=== PATIENT | female | born 1940 | race Caucasian/White ===

== ENCOUNTER 2017-01-30 09:00 | Inpatient (IN) | payer MEDICARE, MEDICAID ==
[~2017-01-30] VITALS: Ht 168.9 cm; Wt 61.5 kg
[~2017-01-30 09:00] MED LIST: AMLO5TAB2 PO; AMLO5TAB4; ASPI-515; ATOR40TA PO; ATOR40TA78 PO; CLOP75TA22; CLOP75TA22 PO; ENAL10TA PO; ENAL10TA46; MENTHOL; METO-40; METO25TA35 PO; OMEP40CA6 PO; TRAM50TA2 PO
[2017-01-30] MEDS ORDERED: PLEASE ENTER HEIGHT AND WEIGHT MC SCH (10:00)
[2017-01-30] MEDS ORDERED: ONDANSETRON 2MG/ML, 2ML IVPush PRN (10:00)
[2017-01-30] MEDS ORDERED: BISACODYL 10 MG SUPP PR PRN (10:00)
[2017-01-30] MEDS ORDERED: ACETAMINOPHEN 325 MG TABLET PO PRN (10:00)
[2017-01-30] MEDS ORDERED: ZOLPIDEM 5MG TABLET PO PRN (10:00)
[2017-01-30] MEDS ORDERED: BISACODYL 5 MG EC TABLET PO PRN (10:00)
[2017-01-30 11:36] LABS: HEMOGLOBIN 13.4 g/dL (11.7-16.4)
[2017-01-30 11:49] LABS: BLOOD UREA NITROGEN 13 mg/dL (7-18)
[2017-01-30 11:54] LABS: IS PT STATUS REG ER OR PRE ER? NO
[2017-01-30] MEDS: SOTALOL 80MG TABLET PO SCH ×2 (12:52→20:29)
[2017-01-30 13:41] VITALS: BP 155/75
[2017-01-30 15:59] LABS: IS PT STATUS REG ER OR PRE ER? NO
[2017-01-30 19:47] VITALS: BP 125/63
[2017-01-30] MEDS: DABIGATRAN 150 MG CAPSULE PO SCH (20:27)
[2017-01-30] MEDS: ATORVASTATIN 80 MG TABLET PO SCH (20:28)
[2017-01-30] MEDS ORDERED: SOTALOL 80MG TABLET PO SCH (21:00)
[2017-01-30 21:47] LABS: IS PT STATUS REG ER OR PRE ER? NO
[2017-01-31 01:52] VITALS: BP 113/47
[2017-01-31 07:32] VITALS: BP 127/61
[2017-01-31] MEDS: CLOPIDOGREL 75 MG TABLET PO SCH (08:25)
[2017-01-31] MEDS: AMLODIPINE 5 MG TABLET PO SCH (08:25)
[2017-01-31] MEDS: ENALAPRIL 20MG TABLET PO SCH (08:25)
[2017-01-31] MEDS: DABIGATRAN 150 MG CAPSULE PO SCH (08:25)
[2017-01-31] MEDS: SOTALOL 80MG TABLET PO SCH ×2 (10:31→20:26)
[2017-01-31 14:48] VITALS: BP 126/72
[2017-01-31] MEDS ORDERED: CEFAZOLIN PMX 1GM/50ML 50 ML IVPB ONE (16:00)
[2017-01-31 19:57] VITALS: BP 160/79
[2017-01-31] MEDS: ATORVASTATIN 80 MG TABLET PO SCH (20:25)
[2017-01-31] MEDS: SODIUM CHLORIDE 0.9% 1,000 ML IV SCH (23:58)
[2017-02-01] MEDS: SODIUM CHLORIDE 0.9% 1,000 ML IV SCH ×2 (00:40→10:16)
[2017-02-01 01:10] VITALS: BP 153/68
[2017-02-01] MEDS: SOTALOL 80MG TABLET PO SCH ×2 (06:35→17:39)
[2017-02-01 07:05] VITALS: BP 150/76
[2017-02-01] MEDS: AMLODIPINE 5 MG TABLET PO SCH (07:56)
[2017-02-01] MEDS: ENALAPRIL 20MG TABLET PO SCH (07:56)
[2017-02-01] MEDS: CLOPIDOGREL 75 MG TABLET PO SCH (07:56)
[2017-02-01] MEDS ORDERED: FENTANYL PF 100 MCG/2ML ONE (11:17)
[2017-02-01] MEDS ORDERED: CEFAZOLIN PMX 1GM/50ML 50 ML ONE (11:18)
[2017-02-01] MEDS ORDERED: MIDAZOLAM 1 MG/ML, 5ML ONE (11:18)
[2017-02-01] MEDS ORDERED: LIDOCAINE 2%, 20ML ONE (11:18)
[2017-02-01] MEDS ORDERED: CEFAZOLIN 1,000 MG ONE (11:18)
[2017-02-01] MEDS ORDERED: ACETAMINOPHEN 325 MG TABLET PO PRN (13:00)
[2017-02-01 14:00] VITALS: BP 137/93
[2017-02-01] MEDS ORDERED: METOPROLOL 1 MG/ML, 5ML IVPush ONE (14:00)
[2017-02-01] MEDS: CEFAZOLIN PMX 1GM/50ML 50 ML IVPB SCH ×2 (16:29→21:52)
[2017-02-01] MEDS: HYDROcodone/APAP 5/325 TABLET PO PRN ×2 (16:39→21:59)
[2017-02-01 18:56] VITALS: BP 103/63
[2017-02-01] MEDS: ATORVASTATIN 80 MG TABLET PO SCH (21:52)
[2017-02-01] MEDS: SODIUM CHLORIDE FLUSH 10ML SYR IVF SCH (21:53)
[2017-02-02 02:00] VITALS: BP 98/65
[2017-02-02 05:50] VITALS: BP 129/75
[2017-02-02] MEDS: SOTALOL 80MG TABLET PO SCH (05:51)
[2017-02-02] MEDS: CLOPIDOGREL 75 MG TABLET PO SCH (08:40)
[2017-02-02] MEDS: AMLODIPINE 5 MG TABLET PO SCH (08:40)
[2017-02-02] MEDS: ENALAPRIL 20MG TABLET PO SCH (08:40)
[2017-02-02] MEDS: SODIUM CHLORIDE FLUSH 10ML SYR IVF SCH (08:40)
[2017-02-02] MEDS ORDERED: HYDR-3240 PO (08:55)
[2017-02-02] MEDS ORDERED: SOTA80TA18 PO (08:55)
[2017-02-02 09:02] VITALS: BP 146/78
[2017-02-02] MEDS ORDERED: DABI150C PO (09:08)
== END 2017-02-02 14:30 | disposition home or self-care (01) | DRG 243 ==
LOC: 5SO 09:08
PROVIDERS: ADMIT Internal Medicine Cardiovascular Disease; ATTEND Internal Medicine Cardiovascular Disease
PROC: 0JH606Z Insertion of Pacemaker, Dual Chamber into Chest Subcutaneous Tissue and Fascia, Open Approach (ICD-10-PCS; principal; 2017-02-01)
PROC: 02HK3JZ Insertion of Pacemaker Lead into Right Ventricle, Percutaneous Approach (ICD-10-PCS; 2017-02-01)
PROC: 02H63JZ Insertion of Pacemaker Lead into Right Atrium, Percutaneous Approach (ICD-10-PCS; 2017-02-01)
DX: I49.5 Sick sinus syndrome (principal); D68.69 Other thrombophilia; I48.0 Paroxysmal atrial fibrillation; I25.10 Atherosclerotic heart disease of native coronary artery without angina pectoris; I10 Essential (primary) hypertension; R05 Cough; E78.5 Hyperlipidemia, unspecified; Z87.891 Personal history of nicotine dependence; Z95.5 Presence of coronary angioplasty implant and graft; M94.0 Chondrocostal junction syndrome [Tietze]
CPT/HCPCS: 33208; 36415; 71010; 71020; 80048; 80061; 84439; 84443; 84484; 85014; 85018; 93005; C1779; C1785; C1892; J0690; J2250; J3010; J3490; J7030

== ENCOUNTER 2017-03-27 23:15 | Inpatient (IN) | payer MEDICARE, MEDICAID ==
[~2017-03-27] VITALS: Ht 170.2 cm; Wt 59.6 kg
[~2017-03-27 23:15] MED LIST changes: +DABI150C PO; +HYDR-3240 PO; +SOTA80TA18 PO
[2017-03-27] MEDS ORDERED: METOPROLOL 1 MG/ML, 5ML ONE (23:49)
[2017-03-27] MEDS: METOPROLOL 1 MG/ML, 5ML IVPush PRN (23:52)
[2017-03-28] MEDS ORDERED: SODIUM CHLORIDE FLUSH 10ML SYR IVF ONE
[2017-03-28] MEDS ORDERED: METOPROLOL 1 MG/ML, 5ML ONE ×2 (00:09→00:33)
[2017-03-28] MEDS: METOPROLOL 1 MG/ML, 5ML IVPush PRN ×2 (00:13→00:39)
[2017-03-28 00:44] LABS: ASPARTATE AMINO TRANSFERASE 20 U/L (15-37); BLOOD UREA NITROGEN 13 mg/dL (7-18)
[2017-03-28 00:52] LABS: IS PT STATUS REG ER OR PRE ER? YES
[2017-03-28] MEDS ORDERED: DILTIAZEM 125 MG in DEXTROSE 5% 100 ML IV SCH (01:32)
[2017-03-28] MEDS ORDERED: DILTIAZEM 5 MG/ML, 5ML ONE (01:43)
[2017-03-28] MEDS ORDERED: DIGOXIN 0.25 MG/ML, 2ML ONE (01:45)
[2017-03-28] MEDS ORDERED: DILTIAZEM 5 MG/ML, 5ML IVPush ONE (02:00)
[2017-03-28] MEDS ORDERED: DIGOXIN 0.25 MG/ML, 2ML IVPush ONE (02:00)
[2017-03-28] MEDS ORDERED: POLYETHYLENE GLYCOL 17 GM PACKET PO PRN (03:00)
[2017-03-28] MEDS ORDERED: ACETAMINOPHEN 325 MG TABLET PO PRN (03:00)
[2017-03-28] MEDS ORDERED: BISACODYL 10 MG SUPP PR PRN (03:00)
[2017-03-28] MEDS ORDERED: DILTIAZEM 125 MG in SODIUM CHLORIDE 0.9% 100 ML IV PRN (03:00)
[2017-03-28] MEDS ORDERED: NITROGLYCERIN 0.4 MG BOTTLE (25 TABS) SL PRN (03:00)
[2017-03-28] MEDS ORDERED: DOCUSATE 100 MG CAPSULE PO PRN (03:00)
[2017-03-28] MEDS ORDERED: ONDANSETRON 2MG/ML, 2ML IVPush PRN (03:00)
[2017-03-28 03:58] VITALS: BP 128/69
[2017-03-28] MEDS ORDERED: SOTALOL 80MG TABLET PO SCH (06:00)
[2017-03-28 07:26] VITALS: BP 119/69
[2017-03-28] MEDS ORDERED: DABIGATRAN 150 MG CAPSULE PO SCH (08:00)
[2017-03-28] MEDS ORDERED: ENALAPRIL 10 MG TABLET PO SCH (09:00)
[2017-03-28] MEDS ORDERED: SODIUM CHLORIDE FLUSH 3ML SYRINGE IVF SCH (09:00)
[2017-03-28] MEDS ORDERED: ATORVASTATIN 40 MG TABLET PO SCH (09:00)
[2017-03-28] MEDS ORDERED: CLOPIDOGREL 75 MG TABLET PO SCH (09:00)
[2017-03-28] MEDS ORDERED: AMLODIPINE 5 MG TABLET PO SCH (09:00)
[2017-03-28] MEDS ORDERED: PROPOFOL 10 MG/ML, 20ML ONE (11:26)
[2017-03-28 13:56] VITALS: BP 121/58
== END 2017-03-28 19:07 | disposition home or self-care (01) | DRG 309 ==
LOC: ED 23:59 → EDIP 03-28 02:05 → SUATTDRO 03-28 02:06 → 5SO 03-28 03:25
PROC: 5A2204Z Restoration of Cardiac Rhythm, Single (ICD-10-PCS; principal; 2017-03-28 11:30)
DX: I48.0 Paroxysmal atrial fibrillation (principal); D68.59 Other primary thrombophilia; D72.829 Elevated white blood cell count, unspecified; E78.5 Hyperlipidemia, unspecified; F17.210 Nicotine dependence, cigarettes, uncomplicated; I11.9 Hypertensive heart disease without heart failure; I25.10 Atherosclerotic heart disease of native coronary artery without angina pectoris; I25.2 Old myocardial infarction; I48.4 Atypical atrial flutter; Z88.8 Allergy status to other drugs, medicaments and biological substances; Z79.01 Long term (current) use of anticoagulants; Z79.899 Other long term (current) drug therapy; Z85.00 Personal history of malignant neoplasm of unspecified digestive organ; Z95.0 Presence of cardiac pacemaker; Z95.5 Presence of coronary angioplasty implant and graft
CPT/HCPCS: 36415; 71010; 80053; 80162; 83735; 84484; 85025; 85610; 85730; 93005; 96365; 96375; J2704; J1160

== ENCOUNTER → 2017-04-12 | Outpatient (CLI) | payer MEDICARE, MEDICAID ==
[2017-04-12 13:00] LABS: BLOOD UREA NITROGEN 11 mg/dL (7-18)
[2017-04-12 13:06] LABS: ASPARTATE AMINO TRANSFERASE 16 U/L (15-37)
== END | disposition home or self-care (01) ==
LOC: CFH 08:33
PROVIDERS: ATTEND Internal Medicine
DX: I10 Essential (primary) hypertension (principal); E78.00 Pure hypercholesterolemia, unspecified; I48.91 Unspecified atrial fibrillation; M72.2 Plantar fascial fibromatosis; M79.631 Pain in right forearm
CPT/HCPCS: 36415; 80053; 80061; 82784; 84155; 84165; 85027; 86334